=== PATIENT | male | born 1990 | race Two or more races ===

== ENCOUNTER 2022-10-15 20:51 | Emergency (ER) | payer SELFPAY ==
[2022-10-15] MEDS ORDERED: Ibuprofen 600 MG Tab PO ONE (21:19)
== END 2022-10-15 21:33 | disposition home or self-care (01) ==
LOC: MW.ED 20:51
DX: M79.651 Pain in right thigh (principal); L73.9 Follicular disorder, unspecified
CPT/HCPCS: 99283; A9270

== ENCOUNTER 2022-11-18 20:23 | Emergency (ER) | payer SELFPAY ==
[2022-11-18] MEDS ORDERED: Ketorolac 30 MG/ML SDV IM ONE (21:31)
[2022-11-18 21:35] LABS: APPEARANCE,URINE CLEAR; BILIRUBIN,URINE NEGATIVE (NEGATIVE); COLOR,URINE YELLOW; GLUCOSE,URINE NEGATIVE (NEGATIVE); KETONES,URINE NEGATIVE (NEGATIVE); LEUKOCYTE ESTERASE,URINE NEGATIVE (NEGATIVE); NITRITE,URINE NEGATIVE (NEGATIVE); OCCULT BLOOD,URINE NEGATIVE (NEGATIVE); PH,URINE 5.5 (5.0-8.0); PROTEIN,URINE NEGATIVE (NEGATIVE); UROBILINOGEN,URINE 0.2 EU/dL (<2.0)
== END 2022-11-18 23:10 | disposition home or self-care (01) ==
LOC: MW.ED 20:23
DX: S33.8XXA Sprain of other parts of lumbar spine and pelvis, initial encounter (principal)
CPT/HCPCS: 72170; 81003; 96372; 99283; J1885